=== PATIENT | male | born 2000 | race Caucasian/White ===

== ENCOUNTER 2024-01-19 00:28 | Emergency (ER) | payer MEDICAID ==
[~2024-01-19] VITALS: Ht 170.2 cm; Wt 77.0 kg
[2024-01-19 00:38] VITALS: O2SAT 99
[2024-01-19 02:20] LABS: BASOPHILS % 0.4 % (0.0-2.0); EOSINOPHILS % 4.4 % (0.0-5.0); HEMATOCRIT. 43.4 % (42.0-52.0); HEMOGLOBIN. 14.2 g/dL (14.0-18.0); LYMPHOCYTES % 27.1 % (20.0-50.0); MEAN CORPUSCULAR HEMOGLOBIN 28.4 pg (28.0-32.0); MEAN CORPUSCULAR HGB CONC 32.8 g/dL (31.0-37.0); MEAN CORPUSCULAR VOLUME 86.6 fL (80.0-94.0); MEAN PLATELET VOLUME 9.6 fl (7.4-10.4); MONOCYTES % 10.6 % (2.0-8.0); NEUTROPHILS % 57.5 % (40.0-76.0); PLATELET 212 x1000/uL (130-400); RED BLOOD CELL COUNT 5.01 mill/uL (4.7-6.1); RED CELL DISTRIBUTION WIDTH 13.4 % (11.6-14.6); WHITE BLOOD COUNT 7.7 x1000/uL (4.5-11.0)
[2024-01-19 02:27] LABS: CHLORIDE 107 mEq/L (98-107); POTASSIUM 3.4 mEq/L (3.5-5.1); SODIUM 141 mEq/L (136-145)
[2024-01-19 02:28] LABS: CARBON DIOXIDE 26 mEq/L (21-32)
[2024-01-19 02:29] LABS: CALCIUM 9.8 mg/dL (8.7-10.4)
[2024-01-19 02:33] LABS: GLUCOSE 98 mg/dL (70-105)
[2024-01-19 02:34] LABS: UREA NITROGEN BLOOD 8 mg/dL (9-23)
[2024-01-19 03:36] LABS: ACETAMINOPHEN < 2 ug/mL (10-30)
[2024-01-19 03:37] LABS: ETHANOL BLOOD < 10 mg/dL (<10)
[2024-01-19 04:44] LABS: *AMPHETAMINES SCREEN URINE NEGATIVE (NEGATIVE); *BARBITURATES SCREEN URINE NEGATIVE (NEGATIVE); *BENZODIAZEPINES SCREEN URINE NEGATIVE (NEGATIVE); *COCAINE SCREEN URINE NEGATIVE (NEGATIVE); METHADONE URINE SCREEN NEGATIVE (NEGATIVE); OPIATES URINE SCREEN NEGATIVE (NEGATIVE); PHENCYCLIDINE URINE SCREEN NEGATIVE (NEGATIVE)
[2024-01-19 04:45] LABS: CANNABINOID URINE SCREEN NEGATIVE (NEGATIVE); ECSTASY MDMA SCREEN URINE CONF.TEST INDICATED (NEGATIVE)
[2024-01-19 13:38] VITALS: BP 115/69; PULSE 83; RESP 22; TEMP 98.3
== END 2024-01-19 13:40 | disposition home or self-care (01) ==
LOC: ER 00:28
DX: F29 Unspecified psychosis not due to a substance or known physiological condition (principal); Z20.822 Contact with and (suspected) exposure to COVID-19; Z86.59 Personal history of other mental and behavioral disorders
CPT/HCPCS: 36415; 80048; 80305; 80307; 80320; 80329; 85025; 87426; 99285; G0480

== ENCOUNTER 2024-10-27 11:48 | Emergency (ER) | payer MEDICAID, OTHER ==
[~2024-10-27] VITALS: Ht 175.3 cm; Wt 70.0 kg
[2024-10-27 11:52] VITALS: O2SAT 100
[2024-10-27 12:28] LABS: BASOPHILS % 0.2 % (0.0-2.0); EOSINOPHILS % 0.5 % (0.0-5.0); HEMATOCRIT. 44.3 % (42.0-52.0); HEMOGLOBIN. 14.7 g/dL (14.0-18.0); LYMPHOCYTES % 13.1 % (20.0-50.0); MEAN CORPUSCULAR HEMOGLOBIN 28.7 pg (28.0-32.0); MEAN CORPUSCULAR HGB CONC 33.1 g/dL (31.0-37.0); MEAN CORPUSCULAR VOLUME 86.8 fL (80.0-94.0); MEAN PLATELET VOLUME 9.1 fl (7.4-10.4); MONOCYTES % 8.1 % (2.0-8.0); NEUTROPHILS % 78.1 % (40.0-76.0); PLATELET 254 x1000/uL (130-400); RED BLOOD CELL COUNT 5.11 mill/uL (4.7-6.1); RED CELL DISTRIBUTION WIDTH 13.8 % (11.6-14.6); WHITE BLOOD COUNT 14.6 x1000/uL (4.5-11.0)
[2024-10-27 12:29] LABS: CLARITY URINE CLOUDY (CLEAR); COLOR URINE DARK YELLOW (YELLOW); GLUCOSE URINE NEGATIVE (NEGATIVE); KETONES URINE 4+ (NEGATIVE); LEUKOCYTE ESTERASE URINE TRACE (NEGATIVE); NITRITE URINE NEGATIVE (NEGATIVE); OCCULT BLOOD URINE 3+ (NEGATIVE); PH URINE 5.5 (4.5-8.0); PROTEIN URINE 3+ (NEGATIVE); SPECIFIC GRAVITY URINE 1.041 (1.005-1.030); UROBILINOGEN URINE 0.2 E.U./dL (0.2-1.0)
[2024-10-27 12:40] LABS: CHLORIDE 107 mEq/L (98-107); POTASSIUM 3.6 mEq/L (3.5-5.1); SODIUM 141 mEq/L (136-145)
[2024-10-27 12:41] LABS: CARBON DIOXIDE 22 mEq/L (21-32)
[2024-10-27 12:42] LABS: CALCIUM 10.3 mg/dL (8.7-10.4)
[2024-10-27 12:46] LABS: CREATININE 1.1 mg/dL (0.6-1.3); GLUCOSE 119 mg/dL (70-105); UREA NITROGEN BLOOD 16 mg/dL (9-23)
[2024-10-27 12:47] LABS: ETHANOL BLOOD < 10 mg/dL (<10)
[2024-10-27 12:48] LABS: ACETAMINOPHEN < 2 ug/mL (10-30)
[2024-10-27 13:06] LABS: *AMPHETAMINES SCREEN URINE NEGATIVE (NEGATIVE); *BARBITURATES SCREEN URINE NEGATIVE (NEGATIVE); *BENZODIAZEPINES SCREEN URINE NEGATIVE (NEGATIVE); *COCAINE SCREEN URINE NEGATIVE (NEGATIVE); CANNABINOID URINE SCREEN NEGATIVE (NEGATIVE); ECSTASY MDMA SCREEN URINE NEGATIVE (NEGATIVE); METHADONE URINE SCREEN NEGATIVE (NEGATIVE); OPIATES URINE SCREEN NEGATIVE (NEGATIVE); PHENCYCLIDINE URINE SCREEN NEGATIVE (NEGATIVE)
[2024-10-27 13:17] LABS: BACTERIA URINE 2+; RBC URINE NONE SEEN /hpf (0-2); SQUAMOUS EPITHELIAL CELL URINE NONE SEEN /lpf (RARE/1+)
[2024-10-27 13:18] LABS: HYALINE CASTS URINE 0-5 /lpf; MUCUS URINE 1+ /lpf (NONE/TRACE); YEAST URINE NONE SEEN
[2024-10-27] MEDS ORDERED: SODIUM CHLORIDE 0.9% (SEPSIS BOLUS) IV ONE (14:30)
[2024-10-27 15:20] LABS: TROPONIN I HIGH SENSITIVITY 18 ng/L (3.0-53)
[2024-10-27 15:21] LABS: ALANINE AMINOTRANSFERASE 197 IU/L (10-49); ALBUMIN 4.1 g/dL (3.2-4.8); ASPARTATE AMINOTRANSFERASE 775 IU/L (<34); BILIRUBIN DIRECT 0.6 mg/dL (<=3.0); BILIRUBIN TOTAL 1.4 mg/dL (0.1-1.0); PROTEIN TOTAL 6.9 g/dL (6.0-8.3)
[2024-10-27] MEDS: CEFTRIAXONE 1GM/50ML 50 ML IV NR (16:45)
[2024-10-27] MEDS: SODIUM CHLORIDE 0.9% 2,100 ML IV SCH (16:58)
[2024-10-27] MEDS: VANCOMYCIN 1G PREMIX 200 ML IV NR (17:05)
[2024-10-27] MEDS ORDERED: ZIPRASIDONE MESYLATE 20MG/VIAL IM ONE (17:45)
[2024-10-27] MEDS: ZIPRASIDONE MESYLATE 20MG/VIAL IM NR (19:04)
[2024-10-27 19:26] VITALS: BP 120/78; PULSE 98; RESP 16; TEMP 37.3; O2SAT 96
== END 2024-10-27 20:50 | disposition short-term general hospital (02) ==
LOC: ER 11:48 → EDBEDREQTM 18:02 → EDBEDREQ 18:02 → ER 20:50
DX: F23 Brief psychotic disorder (principal); R65.10 Systemic inflammatory response syndrome (SIRS) of non-infectious origin without acute organ dysfunction; E86.0 Dehydration; Z59.00 Homelessness unspecified; Z20.822 Contact with and (suspected) exposure to COVID-19; Z86.59 Personal history of other mental and behavioral disorders
CPT/HCPCS: 80076; 80305; 80048; 81003; 80307; 80329; 80320; 83605; 83690; 85025; 87040; 87086; 84484; 36415; 84145; 71045; 74176; 93005; 96367; 96365; 96372; 99291; 87426; J0696; J3370; J3486; Z7610 ×2; G0480